=== PATIENT | male | born 1995 | race African-American/Black ===

== ENCOUNTER 2017-08-23 18:16 | Emergency (ER) | payer SELFPAY ==
[~2017-08-23] VITALS: Ht 170.2 cm; Wt 64.0 kg
[2017-08-23] MEDS ORDERED: KETOROLAC 60MG/2ML VIAL IM STA (20:16)
[2017-08-23] MEDS ORDERED: SILVER SULFADIAZINE 1% CREAM 25GM TOP ONE (20:30)
[2017-08-23] MEDS ORDERED: TETANUS, DIPHTHERIA, PERTUSSIS VAC/PF 0.5ML (>7YR OLD) IM ONE (20:30)
[2017-08-23 22:15] VITALS: BP 126/67
== END 2017-08-23 22:27 | disposition home or self-care (01) ==
LOC: ER 20:20
DX: T23.241A Burn of second degree of multiple right fingers (nail), including thumb, initial encounter (principal); T26.00XA Burn of unspecified eyelid and periocular area, initial encounter; T22.111A Burn of first degree of right forearm, initial encounter; T22.112A Burn of first degree of left forearm, initial encounter; Z98.890 Other specified postprocedural states; X12.XXXA Contact with other hot fluids, initial encounter; Y93.89 Activity, other specified; Y92.010 Kitchen of single-family (private) house as the place of occurrence of the external cause
CPT/HCPCS: 90471; 90715; 96372; 99284; J1885; Z7610

== ENCOUNTER 2017-08-27 16:38 | Emergency (ER) | payer MEDICAID ==
[~2017-08-27] VITALS: Ht 177.8 cm; Wt 66.0 kg
[2017-08-27 16:48] VITALS: BP 149/96
== END 2017-08-27 19:30 | disposition left against medical advice (07) ==
LOC: ER 17:37
DX: Z53.21 Procedure and treatment not carried out due to patient leaving prior to being seen by health care provider (principal)

== ENCOUNTER 2017-08-28 14:44 | Emergency (ER) | payer MEDICAID ==
[~2017-08-28] VITALS: Ht 172.7 cm; Wt 66.0 kg
[2017-08-28] MEDS ORDERED: SILVER SULFADIAZINE 1% CREAM 25GM TOP ONE (19:45)
[2017-08-28] MEDS ORDERED: KETOROLAC 60MG/2ML VIAL IM ONE (19:45)
[2017-08-28 20:03] VITALS: BP 171/95
== END 2017-08-28 20:05 | disposition home or self-care (01) ==
LOC: ER 15:56
DX: T23.241A Burn of second degree of multiple right fingers (nail), including thumb, initial encounter (principal); T22.112A Burn of first degree of left forearm, initial encounter; T22.111A Burn of first degree of right forearm, initial encounter; T20.10XA Burn of first degree of head, face, and neck, unspecified site, initial encounter; F17.200 Nicotine dependence, unspecified, uncomplicated; F12.10 Cannabis abuse, uncomplicated; X10.2XXA Contact with fats and cooking oils, initial encounter; Y93.G3 Activity, cooking and baking; Y92.89 Other specified places as the place of occurrence of the external cause; Y99.8 Other external cause status
CPT/HCPCS: 16020; 96372; 99284; J1885; Z7610